=== PATIENT | male | born 1960 | race Caucasian/White ===

== ENCOUNTER 2023-08-21 18:31 | Inpatient (IN) | payer BC, SELFPAY ==
[2023-08-21] MEDS ORDERED: Lorazepam 2 MG/ML VIAL ONE (19:52)
[2023-08-21] MEDS ORDERED: Labetalol HCl 100 MG/20 ML VIAL ONE (19:53)
[2023-08-21 19:57] LABS: Influenza A by NAA Not Detected (NotDetected); Influenza B by NAA Not Detected (NotDetected); SARS-CoV-2 NAA Rapid Test Not Detected (NotDetected)
[2023-08-21 20:05] LABS: ALT (SGPT) 58 U/L (8-55); AST (SGOT) 115 U/L (5-34); Acetaminophen Less than 10 mcg/mL (10.0-30.0); Albumin 3.6 g/dL (3.4-4.8); Alcohol Less than 10.0 mg/dL (Less than 10); Alkaline Phosphatase 65 U/L (40-110); Anion Gap 16 mmol/L (10-20); BUN (Urea Nitrogen) 5 mg/dL (8.4-25.7); Bilirubin, Total 0.8 mg/dL (0.2-1.2); Calc. Creatinine Clearance 0 mL/min (70-130); Calcium 9.2 mg/dL (7.8-10.44); Carbon Dioxide 24 mmol/L (23-31); Chloride 90 mmol/L (98-107); Estimated GFR 99; Globulin 3.4 g/dL (2.4-3.5); Glucose 102 mg/dL (80-115); Lipase 135 U/L (8-78); Magnesium 1.8 mg/dL (1.6-2.6); Potassium 3.4 mmol/L (3.5-5.1); Salicylate Less than 8.0 mg/dL (15.0-30.0); Sodium 127 mmol/L (136-145)
[2023-08-21 20:08] LABS: Troponin I Less than 0.010 ng/mL (< 0.028)
[2023-08-21 20:10] LABS: #Basophils 0.05 10x3/uL (0.0-0.2); #Eosinphils 0.13 10x3/uL (0.0-0.5); #Neutrophils 5.33 10x3/uL (1.5-8.4); %Basophils 0.5 % (0.0-2.0); %Eosinophils 1.3 % (0.0-6.0); %Lymphocytes 26.6 % (18.0-47.0); %Neutrophils 53.4 % (40.0-75.0); Hemoglobin 13.3 g/dL (13.5-17.5); Mean Corpuscular HGB CONC 36.9 g/dL (32.0-36.0); Mean Corpuscular Volume 92.1 fl (81.2-95.1); Mean Platelet Volume 10.2 fl (7.4-10.4); Platelet Count 352 10x3/uL (150-450); RBC Distribution Width 12.4 % (11.5-14.5); Red Blood Cell (RBC) Count 3.91 10x6/uL (4.32-5.72)
[2023-08-21] MEDS ORDERED: Guaifenesin DM 100-10/5 ML UDCUP PO PRN (21:00)
[2023-08-21] MEDS ORDERED: Ondansetron PF 4 MG/2 ML Vial IVP PRN (21:00)
[2023-08-21] MEDS ORDERED: Acetaminophen 325 MG TAB PO PRN (21:00)
[2023-08-21] MEDS ORDERED: Calcium Carbonate 500 MG ChewTAB PO PRN (21:00)
[2023-08-21] MEDS ORDERED: Lorazepam 2 MG/ML VIAL SLOW IVP PRN (21:02)
[2023-08-21 22:07] VITALS: BMI 24.6
[2023-08-21] MEDS: Magnesium 2 GM/50 ML(in water) 2 GM in Premix 1 BAG IVPB SCH (22:40)
[2023-08-21] MEDS: Dextrose 5 % And 0.9 % NaCl 1,000 ML IV SCH (22:40)
[2023-08-21] MEDS: Potassium Chloride 20 MEQ TAB PO SCH (22:49)
[2023-08-21] MEDS: Amlodipine 5 MG TAB PO SCH (22:50)
[2023-08-21] MEDS: Famotidine 20 MG TAB PO SCH (22:50)
[2023-08-21] MEDS: Multivitamins, Adult 10 ML, Thiamine HCl 100 MG, Folic Acid 1 MG in Dextrose 5 %-0.45 %... IV SCH (22:53)
[2023-08-22 03:28] LABS: #Basophils 0.03 10x3/uL (0.0-0.2); #Eosinphils 0.03 10x3/uL (0.0-0.5); #Monocytes 1.12 10x3/uL (0.0-1.1); #Neutrophils 3.18 10x3/uL (1.5-8.4); %Basophils 0.5 % (0.0-2.0); %Eosinophils 0.5 % (0.0-6.0); %Lymphocytes 25.8 % (18.0-47.0); %Neutrophils 53.9 % (40.0-75.0); Hematocrit 30.7 % (38.8-50.0); Hemoglobin 11.2 g/dL (13.5-17.5); Mean Corpuscular HGB CONC 36.5 g/dL (32.0-36.0); Mean Corpuscular Hemoglobin 33.9 pg (27.0-33.0); Mean Platelet Volume 10.1 fl (7.4-10.4); Platelet Count 316 10x3/uL (150-450); RBC Distribution Width 12.4 % (11.5-14.5); White Blood Cell (WBC) Count 5.9 10x3/uL (3.5-10.5)
[2023-08-22 03:56] LABS: ALT (SGPT) 41 U/L (8-55); AST (SGOT) 75 U/L (5-34); Albumin 2.6 g/dL (3.4-4.8); Alkaline Phosphatase 52 U/L (40-110); Anion Gap 11 mmol/L (10-20); BUN (Urea Nitrogen) 5 mg/dL (8.4-25.7); Bilirubin, Total 0.7 mg/dL (0.2-1.2); Calc. Creatinine Clearance 107 mL/min (70-130); Calcium 8.2 mg/dL (7.8-10.44); Carbon Dioxide 26 mmol/L (23-31); Chloride 95 mmol/L (98-107); Estimated GFR 101; Glucose 132 mg/dL (80-115); Magnesium 2.3 mg/dL (1.6-2.6); Protein, Total 5.6 g/dL (5.8-8.1); Sodium 129 mmol/L (136-145)
[2023-08-22 04:00] LABS: Critical Call Chemistry NUR.CB19@0359; Potassium 2.6 mmol/L (3.5-5.1)
[2023-08-22] MEDS: Potassium Chloride 20 MEQ TAB PO SCH ×3 (04:18→13:16)
[2023-08-22] MEDS ORDERED: Lorazepam 2 MG/ML VIAL SLOW IVP PRN (07:45)
[2023-08-22] MEDS: Folic Acid 1 MG TAB PO SCH (08:59)
[2023-08-22] MEDS: Thiamine HCl 200 MG/2 ML VIAL SLOW IVP SCH (08:59)
[2023-08-22] MEDS: Lisinopril 20 MG TAB PO SCH (08:59)
[2023-08-22] MEDS: chlordiazePOXIDE HCl 5 MG CAP PO SCH (08:59)
[2023-08-22] MEDS: Multivitamin W/ Minerals 1 TAB PO SCH (08:59)
[2023-08-22] MEDS: DULoxetine 20 MG CAP PO SCH (10:00)
[2023-08-22 10:46] LABS: Anion Gap 11 mmol/L (10-20); BUN (Urea Nitrogen) 5 mg/dL (8.4-25.7); Calc. Creatinine Clearance 109 mL/min (70-130); Calcium 8.4 mg/dL (7.8-10.44); Carbon Dioxide 25 mmol/L (23-31); Chloride 101 mmol/L (98-107); Estimated GFR 102; Glucose 135 mg/dL (80-115); Potassium 3.6 mmol/L (3.5-5.1); Sodium 133 mmol/L (136-145)
[2023-08-22 11:42] VITALS: BMI 24.6
[2023-08-22] MEDS: Amlodipine 5 MG TAB PO SCH (20:40)
[2023-08-22] MEDS: Enoxaparin 40 MG (0.4 mL) SYRINGE SC SCH (20:40)
[2023-08-22] MEDS: Zolpidem Tartrate 5 MG TAB PO SCH (23:55)
[2023-08-23 03:59] LABS: #Basophils 0.04 10x3/uL (0.0-0.2); #Eosinphils 0.12 10x3/uL (0.0-0.5); #Monocytes 1.05 10x3/uL (0.0-1.1); #Neutrophils 3.37 10x3/uL (1.5-8.4); %Basophils 0.6 % (0.0-2.0); %Eosinophils 1.9 % (0.0-6.0); %Lymphocytes 26.4 % (18.0-47.0); %Monocytes 16.8 % (0.0-10.0); %Neutrophils 54.1 % (40.0-75.0); Hematocrit 33.1 % (38.8-50.0); Hemoglobin 12.2 g/dL (13.5-17.5); Mean Corpuscular HGB CONC 36.9 g/dL (32.0-36.0); Mean Corpuscular Hemoglobin 34.4 pg (27.0-33.0); Mean Corpuscular Volume 93.2 fl (81.2-95.1); Mean Platelet Volume 10.4 fl (7.4-10.4); Platelet Count 324 10x3/uL (150-450); RBC Distribution Width 12.2 % (11.5-14.5); Red Blood Cell (RBC) Count 3.55 10x6/uL (4.32-5.72); White Blood Cell (WBC) Count 6.2 10x3/uL (3.5-10.5)
[2023-08-23 04:08] LABS: Anion Gap 13 mmol/L (10-20); BUN (Urea Nitrogen) 4 mg/dL (8.4-25.7); Calc. Creatinine Clearance 121 mL/min (70-130); Calcium 8.5 mg/dL (7.8-10.44); Carbon Dioxide 22 mmol/L (23-31); Chloride 99 mmol/L (98-107); Estimated GFR 105; Glucose 102 mg/dL (80-115); Potassium 3.2 mmol/L (3.5-5.1); Sodium 131 mmol/L (136-145)
[2023-08-23 08:40] VITALS: BP 176/104; TEMP 98
[2023-08-23] MEDS: Potassium Chloride 20 MEQ TAB PO SCH (09:55)
== END 2023-08-23 12:15 | disposition home or self-care (01) | DRG 896 ==
LOC: CSHERS 18:31 → CSHTELE 20:47
PROVIDERS: ADMIT Student in an Organized Health Care Education/Training Program; ATTEND Internal Medicine
DX: F10.239 Alcohol dependence with withdrawal, unspecified (principal); G93.41 Metabolic encephalopathy; E87.1 Hypo-osmolality and hyponatremia; R27.0 Ataxia, unspecified; I10 Essential (primary) hypertension; K21.9 Gastro-esophageal reflux disease without esophagitis; Z98.890 Other specified postprocedural states; F41.9 Anxiety disorder, unspecified; F32.A Depression, unspecified; E87.6 Hypokalemia; I16.0 Hypertensive urgency
CPT/HCPCS: 36415; 70450; 71045; 80048; 80053; 80307; 82140; 83690; 83735; 83880; 84484; 85025; 93005; 96374; 96375; J1650; J2060; J3411; J3475; J7042